=== PATIENT | female | born 1960 | race African-American/Black ===

== ENCOUNTER 2022-12-21 05:50 | Day surgery (SDC) | payer BC ==
[~2022-12-21] VITALS: Ht 157.5 cm; Wt 85.3 kg
[2022-12-21] MEDS ORDERED: CEFAZOLIN SOD 2 GM in D5W 50 ML IV ONE (07:00)
[2022-12-21] MEDS ORDERED: SEVOFLURANE 15 MIN GAS INH ONE (08:58)
[2022-12-21] MEDS ORDERED: ONDANSETRON HCL 4 MG/2 ML VIAL ONE (08:58)
[2022-12-21] MEDS ORDERED: LR 1,000 ML IV.SOLN IV ONE (08:58)
[2022-12-21] MEDS ORDERED: DEXAMETHASONE SOD PHOSPHATE 4 MG/ML VIAL ONE (08:58)
[2022-12-21] MEDS ORDERED: MIDAZOLAM HCL 5 MG/ML VIAL (VERSED) IV ONE (08:58)
[2022-12-21] MEDS ORDERED: PROPOFOL 200MG/ 20ML VIAL (DIPRIVAN) IV ONE (08:58)
[2022-12-21] MEDS ORDERED: fentaNYL CITRATE/PF 100 MCG/2 ML AMP ONE (08:58)
[2022-12-21] MEDS ORDERED: METOCLOPRAMIDE HCL 10 MG/2 ML VIAL ONE (08:58)
[2022-12-21] MEDS ORDERED: MEPERIDINE HCL/PF 25 MG/ML DISP.SYRIN IVP PRN (09:00)
[2022-12-21] MEDS ORDERED: LR 1,000 ML IV SCH (09:00)
[2022-12-21] MEDS ORDERED: ONDANSETRON HCL 4 MG/2 ML VIAL IVP PRN (09:00)
[2022-12-21] MEDS ORDERED: HYDROmorphone 1 MG/ML INJ. CARTRIDGE IVP PRN (09:00)
[2022-12-21] MEDS ORDERED: KETOROLAC TROMETHAMINE 30 MG VIAL IVP PRN (09:00)
[2022-12-21 15:58] VITALS: BP_SYST 143; PULSE 88; RESP 18; TEMP 97.1; O2SAT 99
== END 2022-12-21 11:47 | disposition home or self-care (01) ==
LOC: SDS 05:50 → SMU 05:50 → SDS 11:47
PROVIDERS: ATTEND Specialist
DX: N95.0 Postmenopausal bleeding (principal); N95.1 Menopausal and female climacteric states; D25.1 Intramural leiomyoma of uterus; D25.2 Subserosal leiomyoma of uterus; I10 Essential (primary) hypertension; E78.00 Pure hypercholesterolemia, unspecified; Z79.890 Hormone replacement therapy; Z79.899 Other long term (current) drug therapy
CPT/HCPCS: 87081; 58563; 88305; J0690; J1100; J2765; J2250; J2405; J2704; J3010; J7060; J7120